=== PATIENT | male | born 1960 | race Caucasian/White ===

== ENCOUNTER 2018-01-16 03:18 | Emergency (ER) | payer OTHER ==
[~2018-01-16] VITALS: Ht 185.4 cm; Wt 112.0 kg
[2018-01-16 03:19] VITALS: BP 148/75; PULSE 60; RESP 16; TEMP 97.4; O2SAT 97
[2018-01-16] MEDS ORDERED: ATOR40TA16 PO (03:29)
[2018-01-16] MEDS ORDERED: ALLO100T PO (03:29)
[2018-01-16] MEDS ORDERED: LOSA50TA PO (03:29)
[2018-01-16] MEDS ORDERED: PREVAGEN PO (03:29)
--- NOTE | 2018-01-16 04:47 | RADRPT ---
EXAM DATE/TIME: 01/16/2018 03:38 [place] COMPARISON: No previous studies available for comparison. INDICATIONS : Patient states left heel pain from unknown injury. MEDICAL HISTORY : None. SURGICAL HISTORY : None. ENCOUNTER: Initial ACUITY: 2 days PAIN SCORE: 7/10 LOCATION: Left heel. FINDINGS: 2 views of the left heel. Moderate-sized plantar calcaneal spur. Fragmented os perineum is noted. No evidence of fracture. Alignment within normal limits. CONCLUSION: 1. Moderate-sized plantar calcaneal spur. 2. Fragmented os perineum. 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 Ralph Richardson MD on January 16, 2018 at 4:45 Board Certified Radiologist. This report was verified electronically.
--- NOTE | 2018-01-16 04:55 | PD ---
HPI Chief Complaint: Musculoskeletal Complaint Time Seen by Provider: 03:36 Travel History International Travel<30 days: No Contact w/Intl Traveler<30days: No Traveled to known affect area: No History of Present Illness HPI 57-year-old male presents to the emergency department for 1 day of progressively worsening left heel redness and pain. Patient has history of gouty arthritis but has never had gout in this area. Patient denies any injury or trauma. Patient rates pain as 10/10 intensity with weightbearing. Patient is not diabetic. Patient takes no blood thinning agents. Patient has no autoimmune disorder and is on no immunosuppressive agents. Patient is use ibuprofen without relief. Patient is a chronically on allopurinol for gouty suppression. PFSH Past Medical History Narrative Medical Gouty arthritis hypertension migraine sleep apnea; no tobacco use; nursing notes reviewed Arthritis: Yes (RIGHT SHOULDER) High Cholesterol: Yes Gout: Yes (LEFT HAND, LEFT WRIST, LEFT GREAT TOE) Hypertension: Yes Inguinal Hernia: Yes Migraines: Yes Sleep Apnea: Yes (WEARS CPAP) Tetanus Vaccination: > 5 Years Influenza Vaccination: No Social History Alcohol Use: Yes ("ONCE OR TWICE A WEEK") Tobacco Use: No (QUIT AGE 17) Substance Use: No Allergies-Medications (Allergen,Severity, Reaction): Coded Allergies: pollen extracts (Verified Allergy, Intermediate, Sneezing, 01/16/18) Reported Meds & Prescriptions Reported Meds & Active Scripts Active Girard (Hydrocodone-Acetaminophen) 5 Mg-325 Mg Tab 1 Tab PO Q6H PRN Zofran Odt (Ondansetron Odt) 4 Mg Tab 4 Mg SL Q6HR PRN Keflex (Cephalexin) 500 Mg Capsule 500 Mg PO TID Reported [Prevagen] 1 Cap PO DAILY Atorvastatin (Atorvastatin Calcium) 40 Mg Tab 40 Mg PO DAILY Losartan (Losartan Potassium) 50 Mg Tab 50 Mg PO DAILY Allopurinol 100 Mg Tab 100 Mg PO DAILY Review of Systems Except as stated in HPI: all other systems reviewed are Neg General / Constitutional: No: Fever, Chills HENT: No: Congestion Cardiovascular: No: Chest Pain or Discomfort Respiratory: No: Shortness of Breath Gastrointestinal: No: Nausea, Vomiting, Abdominal Pain Genitourinary: No: Dysuria, Flank Pain Musculoskeletal: Positive: Pain (left heel; redness swelling warmth), No: Weakness Skin: No Rash Neurologic: No: Weakness Psychiatric: No: Anxiety Hematologic/Lymphatic: No: Lymph Node Enlargement Physical Exam Narrative GENERAL: SKIN: Warm and dry. HEAD: Normocephalic. EYES: No scleral icterus. No injection or drainage. NECK: Supple, trachea midline. No JVD or lymphadenopathy. CARDIOVASCULAR: Regular rate and rhythm without murmurs, gallops, or rubs. RESPIRATORY: Breath sounds equal bilaterally. No accessory muscle use. GASTROINTESTINAL: Abdomen soft, non-tender, nondistended. MUSCULOSKELETAL: No cyanosis, or edema. Attention left heel redness warmth tenderness; Achilles tendon is intact with provocative testing; foot is neurovascular tendon intact dorsalis pedis pulse 2+ to palpation capillary refill brisk less than 2 seconds. No plantar surface increased pain to palpation or weightbearing. BACK: Nontender without obvious deformity. No CVA tenderness. Data Data Last Documented VS Vital Signs Date Time Temp Pulse Resp B/P (MAP) Pulse Ox O2 Delivery O2 Flow Rate FiO2 01/16/18 03:19 97.4 60 16 148/75 (99) 97 Orders Orders Foot, Heel Only ([id number]) (01/16/18 ) Ketorolac Inj (Toradol Inj) (01/16/18 05:00) Acetamin-Hydrocod 325-5 Mg (Girard 5-325 (01/16/18 05:00) Cephalexin (Keflex) (01/16/18 05:15) Acetamin-Hydrocod 325-5 Mg (Girard 5-325 (01/16/18 05:15) Ed Discharge Order (01/16/18 05:06) Crutches (01/16/18 05:06) MDM Medical Decision Making Medical Screen Exam Complete: Yes Emergency Medical Condition: Yes Medical Record Reviewed: Yes Interpretation(s) Last Impressions Foot X-Ray 01/16/18 0000 Signed Impressions: Service Date/Time: Tuesday, January 16, 2018 03:38 - CONCLUSION: 1. Moderate-sized plantar calcaneal spur. 2. Fragmented os perineum. 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 Ralph Richradson MD Vital Signs Date Time Temp Pulse Resp B/P (MAP) Pulse Ox O2 Delivery O2 Flow Rate FiO2 01/16/18 03:19 97.4 60 16 148/75 (99) 97 Differential Diagnosis Cellulitis, tendinitis, tenosynovitis, plantar fasciitis, fracture, gouty arthritis; os peroneum syndrome Narrative Course Imaging study ordered patient administered toradol 60 mg IM and one-time dose of Lortab Wear firm soled supportive shoes Follow-up with primary care provider/podiatry Diagnosis Primary Impression: Cellulitis of heel, left Additional Impression: Tendinitis Referrals: Medical Education Coordinator call for appointment [facility] call for appointment Patient Instructions: General Instructions Additional Instructions: No work 2 days Elevate left lower extremity Take medications as prescribed Monitor temperature every 4 hours with thermometer and may use [id number] acetaminophen/Tylenol for fever 100.4F or greater or ibuprofen 800 mg as often as every 8 hours for pain associated with inflammation or for fever 100.4F or greater Return to the emergency department for fever pain worsening redness swelling or any concern Med/Other Pt SpecificInfo: Prescription(s) given Scripts Hydrocodone-Acetaminophen (Girard) 5 Mg-325 Mg Tab 1 TAB PO Q6H Y for PAIN, #6 TAB 0 Refills Prov: Carmen Garcia MD 01/16/18 Ondansetron Odt (Zofran Odt) 4 Mg Tab 4 MG SL Q6HR Y for Nausea/Vomiting, #10 TAB 0 Refills Prov: Carmen Garcia MD 01/16/18 Cephalexin (Keflex) 500 Mg Capsule 500 MG PO TID for Infection, #15 CAP 0 Refills Prov: Carmen Garcia MD 01/16/18 Disposition: 01 DISCHARGE HOME Condition: Stable Carmen Garcia MD Jan 16, 2018 04:55
[2018-01-16] MEDS ORDERED: ACETAMINOPHEN/HYDROcodone 325 MG/5 MG TAB PO ONE ×2 (05:00→05:15)
[2018-01-16] MEDS ORDERED: KETOROLAC TROMETHAMINE 60 MG/2 ML (IM) VIAL IM ONE (05:00)
[2018-01-16] MEDS ORDERED: ZOFR4TAB3 SL (05:05)
[2018-01-16] MEDS ORDERED: NORC5TAB PO (05:05)
[2018-01-16] MEDS ORDERED: CEPH-460 PO (05:05)
[2018-01-16] MEDS ORDERED: CEPHALEXIN MONOHYDRATE 500 MG CAP PO ONE (05:15)
== END 2018-01-16 05:21 | disposition home or self-care (01) ==
LOC: PHED 03:18
DX: L03.116 Cellulitis of left lower limb (principal); M10.9 Gout, unspecified; M77.9 Enthesopathy, unspecified; E78.00 Pure hypercholesterolemia, unspecified; I10 Essential (primary) hypertension; G47.30 Sleep apnea, unspecified
CPT/HCPCS: 73650; 96372; 99283; E0113; J1885